=== PATIENT | female | born 1975 | race Two or more races ===

== ENCOUNTER 2018-06-28 12:46 | Outpatient (CLI) | payer BC | END 2018-06-28 23:59 | disposition home health service (06) | LOC: WOU 12:46 | PROVIDERS: ATTEND Surgery | DX: Z48.3 Aftercare following surgery for neoplasm (principal); T81.89XA Other complications of procedures, not elsewhere classified, initial encounter; C19 Malignant neoplasm of rectosigmoid junction; Z92.21 Personal history of antineoplastic chemotherapy; Z82.3 Family history of stroke | CPT/HCPCS: 11043; A6402; A6407; Z7610 ==

== ENCOUNTER 2018-07-09 12:45 | Outpatient (CLI) | payer BC | END 2018-07-09 23:59 | disposition home health service (06) | LOC: WOU 12:45 | PROVIDERS: ATTEND Surgery | DX: Z48.3 Aftercare following surgery for neoplasm (principal); T81.89XA Other complications of procedures, not elsewhere classified, initial encounter; C19 Malignant neoplasm of rectosigmoid junction; Z92.21 Personal history of antineoplastic chemotherapy | CPT/HCPCS: 11043; A6402; A6407 ==

== ENCOUNTER 2018-07-23 12:50 | Outpatient (CLI) | payer BC | END 2018-07-23 23:59 | disposition home health service (06) | LOC: WOU 12:50 | PROVIDERS: ATTEND Surgery | DX: Z48.3 Aftercare following surgery for neoplasm (principal); T81.31XA Disruption of external operation (surgical) wound, not elsewhere classified, initial encounter; C19 Malignant neoplasm of rectosigmoid junction | CPT/HCPCS: 11043; A6402; A6407 ==

== ENCOUNTER 2018-08-06 12:55 | Outpatient (CLI) | payer BC | END 2018-08-06 23:59 | disposition home health service (06) | LOC: WOU 12:55 | PROVIDERS: ATTEND Surgery | DX: Z48.3 Aftercare following surgery for neoplasm (principal); T81.31XA Disruption of external operation (surgical) wound, not elsewhere classified, initial encounter; C19 Malignant neoplasm of rectosigmoid junction | CPT/HCPCS: 11043; A6402; A6407 ==

== ENCOUNTER 2018-08-23 12:50 | Outpatient (CLI) | payer BC | END 2018-08-23 23:59 | disposition home health service (06) | LOC: WOU 12:50 | PROVIDERS: ATTEND Surgery | DX: T81.31XA Disruption of external operation (surgical) wound, not elsewhere classified, initial encounter (principal); Z82.3 Family history of stroke; Z92.21 Personal history of antineoplastic chemotherapy; Z92.3 Personal history of irradiation; Z90.49 Acquired absence of other specified parts of digestive tract; Z85.038 Personal history of other malignant neoplasm of large intestine | CPT/HCPCS: 11043; A6402; A6407 ==

== ENCOUNTER 2018-09-06 12:40 | Outpatient (CLI) | payer BC | END 2018-09-06 23:59 | disposition home health service (06) | LOC: WOU 12:40 | PROVIDERS: ATTEND Surgery | DX: T81.31XA Disruption of external operation (surgical) wound, not elsewhere classified, initial encounter (principal); Z92.21 Personal history of antineoplastic chemotherapy; C19 Malignant neoplasm of rectosigmoid junction | CPT/HCPCS: 11043; A6402; A6407 ==

== ENCOUNTER 2018-09-20 12:50 | Outpatient (CLI) | payer BC | END 2018-09-20 23:59 | disposition home health service (06) | LOC: WOU 12:50 | PROVIDERS: ATTEND Surgery | DX: T81.31XA Disruption of external operation (surgical) wound, not elsewhere classified, initial encounter (principal); Z90.49 Acquired absence of other specified parts of digestive tract; Z85.038 Personal history of other malignant neoplasm of large intestine; Z85.048 Personal history of other malignant neoplasm of rectum, rectosigmoid junction, and anus; Z92.21 Personal history of antineoplastic chemotherapy; Z92.3 Personal history of irradiation | CPT/HCPCS: 11043; A6402; A6407 ==

== ENCOUNTER 2018-10-11 12:50 | Outpatient (CLI) | payer BC | END 2018-10-11 23:59 | disposition home health service (06) | LOC: WOU 12:50 | PROVIDERS: ATTEND Surgery | DX: T81.31XA Disruption of external operation (surgical) wound, not elsewhere classified, initial encounter (principal); Z92.21 Personal history of antineoplastic chemotherapy; Z90.49 Acquired absence of other specified parts of digestive tract; C19 Malignant neoplasm of rectosigmoid junction | CPT/HCPCS: 11043; A6402; A6407 ==

== ENCOUNTER 2018-10-22 12:50 | Outpatient (CLI) | payer BC | END 2018-10-22 23:59 | disposition home health service (06) | LOC: WOU 12:50 | PROVIDERS: ATTEND Surgery | DX: T81.31XA Disruption of external operation (surgical) wound, not elsewhere classified, initial encounter (principal); C19 Malignant neoplasm of rectosigmoid junction; Z90.49 Acquired absence of other specified parts of digestive tract; Z92.21 Personal history of antineoplastic chemotherapy | CPT/HCPCS: 11043; A6402; J3490 ==

== ENCOUNTER 2018-11-05 13:40 | Outpatient (CLI) | payer BC | END 2018-11-05 23:59 | disposition home health service (06) | LOC: WOU 13:40 | PROVIDERS: ATTEND Surgery | DX: T81.31XA Disruption of external operation (surgical) wound, not elsewhere classified, initial encounter (principal); C19 Malignant neoplasm of rectosigmoid junction; Z90.49 Acquired absence of other specified parts of digestive tract; Z92.21 Personal history of antineoplastic chemotherapy | CPT/HCPCS: 11043; A6402 ==

== ENCOUNTER 2018-12-03 13:40 | Outpatient (CLI) | payer BC | END 2018-12-03 23:59 | disposition home health service (06) | LOC: WOU 13:40 | PROVIDERS: ATTEND Surgery | DX: T81.31XA Disruption of external operation (surgical) wound, not elsewhere classified, initial encounter (principal); C19 Malignant neoplasm of rectosigmoid junction; Z92.21 Personal history of antineoplastic chemotherapy; Z90.49 Acquired absence of other specified parts of digestive tract | CPT/HCPCS: 11043; A6402 ==

== ENCOUNTER 2019-01-07 13:20 | Outpatient (CLI) | payer BC | END 2019-01-07 23:59 | disposition home or self-care (01) | LOC: WOU 13:20 | PROVIDERS: ATTEND Surgery | DX: T81.89XD Other complications of procedures, not elsewhere classified, subsequent encounter (principal); C19 Malignant neoplasm of rectosigmoid junction | CPT/HCPCS: G0463 ==